=== PATIENT | female | born 1970 | race Caucasian/White ===

== ENCOUNTER → 2017-01-06 | Day surgery (SDC) | payer OTHER ==
--- NOTE | 2017-01-05 18:00 | History & Physical Pre-Op ---
General Information and HPI History of Present Illness: 46yo with menorrhagia and thickened endometrium on sonogram. desires definitive surgery with HANY and admitted today for D&C for histology. Allergies/Medications Allergies: Coded Allergies: NO KNOWN ALLERGIES (01/05/17) Home Med list Quetiapine Fumarate (Unknown Strength) TABLET (Unknown Dose) PO QPM ANXIETY ( Reported) Past History Medical History Psychiatric: bipolar disease, depression Surgical History Pertinent Surgical History: none Review of Systems Review of Systems Constitutional: Reports: no symptoms. EENTM: Reports: no symptoms. Cardiovascular: Reports: no symptoms. Respiratory: Reports: no symptoms. GI: Reports: no symptoms. Genitourinary: Reports: see HPI. Musculoskeletal: Reports: no symptoms. Skin: Reports: no symptoms. Neurological/Psychological: Reports: no symptoms. Hematologic/Endocrine: Reports: no symptoms. Immunologic/Allergic: Reports: no symptoms. All Other Systems: Reviewed and Negative Exam & Diagnostic Data Last 24 Hrs of Vital Signs/I&O vss Intake & Output 01/05 1600 01/05 0800 01/05 0000 Intake Total Output Total Balance Patient 180 lb Weight Physical Exam: HEENT: NCAT chestA: CTA CV: nl S1S2 Abd: soft, NTND Pelvic: deferred Ext: no c/c/e Assessment/Plan Assessment/Plan: menorrhagia D&C hysteroswcopy As Ranked By This Provider Problem List: 1. Menorrhagia
[~2017-01-06] VITALS: Ht 172.7 cm; Wt 81.6 kg
[~2017-01-06] MED LIST: BUPROPION HCL150 MG PO; LITHIUM CARBON450 MG PO; QUETIAPINE FUMA25 M1 PO
--- NOTE | 2017-01-06 12:45 | Operative Report ---
Operative/Inv Procedure Report Surgery Date: 01/06/17 Name of Procedure: D&C Pre-Operative Diagnosis: Menorrhagia Post-Operative Diagnosis: Same Estimated Blood Loss: scant Surgeon/Hand Stoner: OLGA LO MD Anesthesia: moderate sedation Operative/Procedure Note Note: The patient was brought to the operating room placed on the OR table in the dorsal supine position. She was given adequate anesthesia and repositioned into modified dorsal lithotomy. She was prepped and draped in usual sterile fashion. A weighted speculum was inserted into the vagina and with the help of a [place] retractor a single-toothed tenaculum was attached to the anterior lip of the cervix. The cervix was injected with 1% lidocaine with epinephrine 2-1/2 mL in each quadrant. An endocervical curettage was performed the cervix was dilated and an endometrial curettage was performed revealing a moderate amount of tissue. At the end of the procedure the instruments were removed hemostasis was verified and the patient was awakened and sent to recovery in good condition. All needle, sponge, and instrument counts were correct at the end of the procedure 2.
== END ==
LOC: STS 04:50
DX: N92.0 Excessive and frequent menstruation with regular cycle (principal); N72 Inflammatory disease of cervix uteri
CPT/HCPCS: 81025; 88305; J2250